=== PATIENT | female | born 1985 | race Hispanic/Latino ===

== ENCOUNTER 2018-12-12 22:29 | Emergency (ER) | payer SELFPAY ==
[2018-12-12] MEDS ORDERED: LIDOCAINE 1% W/EPI 1:100,000 MDV 20 ML VIAL ONE (23:53)
[2018-12-13] MEDS ORDERED: HYDROCODONE/APAP 7.5/325 MG TAB ONE (00:36)
--- NOTE | 2018-12-13 01:08 | EDPHYS ---
Physician Documentation [facility] Name: Rosibel Rosenberg Age: 33 yrs Sex: Female : 1985 Arrival Date: 12/12/2018 Time: 22:31 Bed 4 Private MD: ED Physician Benjamin John HPI: 12/12 23:00 This 33 yrs old Female presents to ER via Wheelchair with complaints of cp Laceration To Forehead. 23:00 The patient has a laceration occurred at home, The injury was fall while "horse cp playing" with . 23:00 The laceration(s) is(are) located on the forehead. Onset: The symptoms/episode cp began/occurred just prior to arrival. Associated signs and symptoms: Pertinent negatives: heavy bleeding, loss of consciousness, suspected foreign body. 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 - Social history:: Smoking status: Patient uses tobacco products, denies chronic smoking, but will smoke occasionally, Patient/guardian denies using alcohol, street drugs. - Ebola Screening: : Patient negative for fever greater than or equal to 101.5 degrees Fahrenheit, and additional compatible Ebola Virus Disease symptoms Patient denies exposure to infectious person Patient denies travel to an Ebola-affected area in the 21 days before illness onset. ROS: 23:05 Constitutional: Negative for body aches, chills, fever, poor PO intake. cp 23:05 Eyes: Negative for injury, pain, redness, and discharge. cp 23:05 Cardiovascular: Negative for chest pain, palpitations. cp 23:05 ENT: Negative for drainage from ear(s), ear pain, sore throat, difficulty swallowing, cp difficulty handling secretions. 23:05 Respiratory: Negative for cough, shortness of breath, wheezing. 23:05 Abdomen/GI: Negative for abdominal pain, vomiting, constipation. 23:05 Back: Negative for pain at rest, pain with movement. 23:05 Skin: Positive for laceration(s), of the forehead. 23:05 Neuro: Positive for headache, Negative for altered mental status, loss of consciousness, seizure activity. 23:05 All other systems are negative. Exam: 23:15 Constitutional: The patient appears in no acute distress, alert, awake, non-toxic, well cp developed, well nourished. 23:15 Head/face: Noted is abrasion(s), that are mild, of the forehead and left cheek, a cp laceration(s), that is deep, of the forehead, swelling, that is mild, of the forehead and left cheek, tenderness, that is moderate, of the forehead and left cheek. 23:15 Eyes: Pupils: equal, round, and reactive to light and accomodation, Extraocular movements: intact throughout, Conjunctiva: normal, no exudate, no injection, Lids and lashes: appear normal, bilaterally. 23:15 ENT: External ear(s): are unremarkable, Ear canal(s): are normal, clear, TM's: bulging, is not appreciated, bilaterally, dullness, bilaterally, erythema, is not appreciated, bilaterally, Nose: is normal, Mouth: Lips: moist, Oral mucosa: moist, Posterior pharynx: is normal, airway is patent, no erythema, no exudate. 23:15 Neck: External neck: tenderness, that is mild, of the occiput, left mid cervical area and right mid cervical area, ROM/movement: limited range of motion, is not appreciated, nuchal rigidity, is not appreciated. 23:15 Chest/axilla: Inspection: normal, Palpation: is normal, no crepitus, no tenderness. 23:15 Cardiovascular: Rate: normal, Rhythm: regular. 23:15 Respiratory: the patient does not display signs of respiratory distress, Respirations: normal, no use of accessory muscles, no retractions, no splinting, no tachypnea, labored breathing, is not present, Breath sounds: are clear throughout, no decreased breath sounds, no stridor, no wheezing. 23:15 Abdomen/GI: Inspection: abdomen appears normal, Palpation: abdomen is soft and non-tender, in all quadrants, voluntary guarding, is not appreciated. Vital Signs: 22:50 BP 127 / 84; Pulse 81; Resp 19; Temp 97.9(O); Pulse Ox 99% on R/A; Weight 58.97 kg; tl1 Height 5 ft. 3 in. (160.02 cm); Pain 9/10; 12/13 00:34 BP 116 / 77; Pulse 80; Resp 16 S; Pulse Ox 98% on R/A; Pain 9/10; jd3 12/12 22:50 Body Mass Index 23.03 (58.97 kg, 160.02 cm) tl1 Laceration: 01:04 Wound Repair of 1.5cm ( 0.6in ) subcutaneous laceration to left lower forehead. cp Irregularly shaped.. Distal neuro/vascular/tendon intact. Anesthesia: Wound infiltrated with 4 mls of 1% lidocaine w/ Epi. Wound prep: Simple cleansing by nurse. Skin closed with 4 6-0 Prolene using simple sutures and sterile technique. Dressed with Bacitracin. Patient tolerated well. MDM: 12/12 22:53 Patient medically screened. cp 12/13 01:03 Data reviewed: vital signs, nurses notes, radiologic studies, CT scan, and as a result, cp I will discharge patient. 01:03 Special discussion: Based on the patient's history, exam and DX evaluation, there is no cp indication for emergent intervention or inpatient TX. It is understood by the patient/guardian that if the SXs persist or worsen they need to return immediately for re-evaluation. 12/12 22:55 Order name: CT Head C Spine cp 12/12 22:55 Order name: CT Facial Bones W/O Con cp 12/12 23:38 Order name: Dressing - Wound; Complete Time: 01:32 cp 12/12 23:38 Order name: Gloves, Sterile; Complete Time: 00:10 cp 12/12 23:38 Order name: Setup Suture Tray; Complete Time: 00:10 cp 12/13 00:18 Order name: Wound Care: please clean and irrigate wound; Complete Time: 00:31 cp 12/13 01:03 Order name: Wound dressing; Complete Time: 01:29 cp Administered Medications: 00:10 Drug: Lidocaine-Epinephrine -1%: (1:100,000) 10 ml {Note: given by Yoshi MARCELO.} jd3 Volume: 20 ml; Route: Infiltration; 01:00 Follow up: Response: No adverse reaction jd3 00:38 Drug: Hydrocodone-Acetaminophen (7.5 mg-325 mg) 1 tabs Route: PO; jd3 01:07 Follow up: Response: No adverse reaction; RASS: Alert and Calm (0) jd3 01:10 Drug: Tetanus-Diphtheria Toxoid Adult 0.5 ml {Insurance Application Investigator: [employer]. Exp: jd3 07/02/2020. Lot #: [id number]. } Route: IM; Site: right deltoid; 01:29 Follow up: Response: No adverse reaction jd3 Disposition: 01:45 Chart complete. cp Disposition: 12/13/18 01:06 Discharged to Home. Impression: Concussion, Laceration without foreign body of unspecified part of head - left lower forehead. - Condition is Stable. - Discharge Instructions: Concussion, Adult, Head Injury, Adult, Facial Laceration. - Medication Reconciliation Form, Thank You Letter, Antibiotic Education, Prescription Opioid Use, Work release form form. - Follow up: Private Physician; When: 2 - 3 days; Reason: Wound Recheck. - Problem is new. - Symptoms have improved. Signatures: Dispatcher [employer] EDW[place] Alissa Watson, RN RN tl1 Yoshi Castrejon PA PA cp Davies, Jonathon, RN RN jd3 Corrections: (The following items were deleted from the chart) 01:32 01:06 12/13/2018 01:06 Discharged to Home. Impression: Concussion; Laceration without jd3 foreign body of unspecified part of head - left lower forehead. Condition is Stable. Forms are Medication Reconciliation Form, Thank You Letter, Antibiotic Education, Prescription Opioid Use. Follow up: Private Physician; When: 2 - 3 days; Reason: Wound Recheck. Problem is new. Symptoms have improved. cp
--- NOTE | 2018-12-13 01:08 | ER ---
Nurse's Notes [facility] Name: Rosibel Rosenberg Age: 33 yrs Sex: Female : 1985 Arrival Date: 12/12/2018 Time: 22:31 Bed 4 Private MD: Diagnosis: Concussion;Laceration without foreign body of unspecified part of head-left lower forehead Presentation: 12/12 22:49 Presenting complaint: Patient states: I was playing with my kids outside and my tl1 was carrying me and we fell down and I hit my head on a rock. Transition of care: patient was not received from another setting of care. Complicating Factors: There are no complicating factors for this patient. The type of wound is a puncture. Onset of symptoms was December 12, 2018. Risk Assessment: Do you want to hurt yourself or someone else? Patient reports no desire to harm self or others. Initial Sepsis Screen: Does the patient meet any 2 criteria? No. Patient's initial sepsis screen is negative. Does the patient have a suspected source of infection? No. Patient's initial sepsis screen is negative. Care prior to arrival: None. 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 - Social history:: Smoking status: Patient uses tobacco products, denies chronic smoking, but will smoke occasionally, Patient/guardian denies using alcohol, street drugs. - Ebola Screening: : Patient negative for fever greater than or equal to 101.5 degrees Fahrenheit, and additional compatible Ebola Virus Disease symptoms Patient denies exposure to infectious person Patient denies travel to an Ebola-affected area in the 21 days before illness onset. Screenin:27 Abuse screen: Denies threats or abuse. Nutritional screening: No deficits noted. jd3 Tuberculosis screening: No symptoms or risk factors identified. Fall Risk Ambulatory Aid- None/Bed Rest/Nurse Assist (0 pts). Gait- Normal/Bed Rest/Wheelchair (0 pts) Mental Status- Oriented to own ability (0 pts). Total Myers Fall Scale indicates No Risk (0-24 pts). Assessment: 23:00 General: Appears in no apparent distress. uncomfortable, Behavior is calm, cooperative, jd3 appropriate for age, anxious. Pain: Complains of pain in forehead and neck Quality of pain is described as aching, pinching. Neuro: Level of Consciousness is awake, alert, obeys commands, Oriented to person, place, time, situation, Speech is normal, Facial symmetry appears normal, Pupils are PERRLA, Intact Reports headache Denies syncope . Cardiovascular: Capillary refill < 3 seconds Patient's skin is warm and dry. Respiratory: Airway is patent Respiratory effort is even, unlabored, Respiratory pattern is regular, symmetrical, Denies cough, shortness of breath. GI: Patient currently denies nausea, vomiting. : No signs and/or symptoms were reported regarding the genitourinary system. EENT: No signs and/or symptoms were reported regarding the EENT system. Derm: Skin is intact, Skin is dry, Skin is normal, Skin temperature is warm Wound noted forehead Wound is laceration to forehead noted that is about 5 cm in length with small amount of bleeding. Musculoskeletal: Circulation, motion, and sensation intact. Range of motion: intact in all extremities. Injury Description: Laceration sustained to forehead is clean, 2.6 to 7.5 cm long, is bleeding a small amount. 12/13 00:33 Reassessment: Patient appears in no apparent distress at this time. No changes from jd3 previously documented assessment. Patient and/or family updated on plan of care and expected duration. Pain level reassessed. Patient is alert, oriented x 3, equal unlabored respirations, skin warm/dry/pink. reporting continued pain. provider notified. 01:31 Reassessment: Patient appears in no apparent distress at this time. Patient and/or jd3 family updated on plan of care and expected duration. Pain level reassessed. Patient is alert, oriented x 3, equal unlabored respirations, skin warm/dry/pink. pt with even and steady gait. Patient states feeling better. Vital Signs: 12/12 22:50 BP 127 / 84; Pulse 81; Resp 19; Temp 97.9(O); Pulse Ox 99% on R/A; Weight 58.97 kg; tl1 Height 5 ft. 3 in. (160.02 cm); Pain 9/10; 12/13 00:34 BP 116 / 77; Pulse 80; Resp 16 S; Pulse Ox 98% on R/A; Pain 9/10; jd3 12/12 22:50 Body Mass Index 23.03 (58.97 kg, 160.02 cm) tl1 ED Course: 12/12 22:31 Patient arrived in ED. ag3 22:48 Yoshi Castrejon PA is PHCP. cp 22:48 Benjamin John MD is Attending Physician. cp 22:50 Triage completed. tl1 22:52 Arm band placed on right wrist. tl1 23:09 Marlin Jacome, RN is Primary Nurse. ak1 23:23 Primary Nurse role handed off by Marlin Jacome, RN jd3 23:23 Bora Ni RN is Primary Nurse. jd3 23:28 Patient has correct armband on for positive identification. Bed in low position. Call jd3 light in reach. Side rails up X2. Adult w/ patient. 23:55 CT Head C Spine In Process Unspecified. EDMS 23:56 CT Facial Bones W/O Con In Process Unspecified. EDMS 12/13 01:29 No provider procedures requiring assistance completed. Patient did not have IV access jd3 during this emergency room visit. Administered Medications: 00:10 Drug: Lidocaine-Epinephrine -1%: (1:100,000) 10 ml {Note: given by Yoshi RASHEED..} jd3 Volume: 20 ml; Route: Infiltration; 01:00 Follow up: Response: No adverse reaction jd3 00:38 Drug: Hydrocodone-Acetaminophen (7.5 mg-325 mg) 1 tabs Route: PO; jd3 01:07 Follow up: Response: No adverse reaction; RASS: Alert and Calm (0) jd3 01:10 Drug: Tetanus-Diphtheria Toxoid Adult 0.5 ml {Plant Guide: [employer]. Exp: jd3 07/02/2020. Lot #: [id number]. } Route: IM; Site: right deltoid; :29 Follow up: Response: No adverse reaction jd3 Outcome: 01:06 Discharge ordered by . cp 01:29 Discharged to home ambulatory, with family. jd3 01:29 Condition: stable 01:29 Discharge instructions given to patient, family, Instructed on discharge instructions, follow up and referral plans. Demonstrated understanding of instructions, follow-up care. 01:32 Patient left the ED. jd3 Signatures: Dispatcher [employer] EDMS Alissa Watson, RN RN tl1 Marlin Jacome RN RN ak1 Yoshi Castrejon PA PA cp Davies, Jonathon, RN RN [email or web address] Rhea Smith ag3 Corrections: (The following items were deleted from the chart) 01:29 01:28 Tetanus-Diphtheria Toxoid Adult 0.5 ml IM in right deltoid Plant Guide: Mass jd3 Biologic Lot: [id number] Exp: 07/02/2020 jd3 01:32 01:31 Reassessment: Patient appears in no apparent distress at this time. Patient jd3 and/or family updated on plan of care and expected duration. Pain level reassessed. Patient is alert, oriented x 3, equal unlabored respirations, skin warm/dry/pink. Patient states feeling better. jbill
[2018-12-13] MEDS ORDERED: TETANUS & DIPHTHERIA TOX,ADULT 0.5 ML VIAL ONE (01:16)
[2018-12-13 02:47] VITALS: BP 116/77; O2SAT 98
[2018-12-13 02:48] VITALS: TEMP 97.9
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
== END 2018-12-13 01:32 | disposition home or self-care (01) ==
LOC: ER 22:29
PROC: 0JQ10ZZ Repair Face Subcutaneous Tissue and Fascia, Open Approach (ICD-10-PCS; principal; 2018-12-13)
DX: S01.81XA Laceration without foreign body of other part of head, initial encounter (principal); S06.0X0A Concussion without loss of consciousness, initial encounter; X58.XXXA Exposure to other specified factors, initial encounter; Y93.89 Activity, other specified; Y92.009 Unspecified place in unspecified non-institutional (private) residence as the place of occurrence of the external cause; Z72.0 Tobacco use; Z23 Encounter for immunization
CPT/HCPCS: 70450; 70486; 72125; 76377; 90471; 90714; 99283

== ENCOUNTER 2019-12-08 15:02 | Emergency (ER) | payer SELFPAY ==
[2019-12-08] MEDS ORDERED: ACETAMINOPHEN 325 MG TABLET ONE (15:41)
[2019-12-08] MEDS ORDERED: IBUPROFEN 400 MG TAB ONE (15:41)
[2019-12-08] MEDS ORDERED: IBUPROFEN 200 MG TAB PO ONE (15:41)
--- NOTE | 2019-12-08 16:08 | RAD REPORT ---
EXAM DESCRIPTION: RAD - Chest Single View - 12/08/2019 3:38 pm CLINICAL HISTORY: CHEST PAIN COMPARISON: None TECHNIQUE: AP portable chest image was obtained 12/08/2019 3:38 pm . FINDINGS: Lungs are clear. Heart and vasculature are normal. No measurable pleural effusion and no p neumothorax. No acute bony abnormality seen. No acute aortic findings suspected. IMPRESSION: No acute cardiopulmonary process.
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
[2019-12-08 19:32] VITALS: BP 135/89; TEMP 99.3; O2SAT 100
== END 2019-12-08 17:02 | disposition home or self-care (01) ==
LOC: ER 15:02
DX: R07.89 Other chest pain (principal); M25.561 Pain in right knee; V43.53XA Car driver injured in collision with pick-up truck in traffic accident, initial encounter; Y93.89 Activity, other specified; Y92.9 Unspecified place or not applicable
CPT/HCPCS: 71045; 99284; G0390